=== PATIENT | female | born 1950 | race Caucasian/White ===

== ENCOUNTER 2016-05-14 18:13 | Emergency (ER) | payer OTHER ==
[~2016-05-14] VITALS: Ht 172.7 cm; Wt 66.0 kg
[2016-05-14 18:23] VITALS: TEMP 37; Ht 172.7 cm; Wt 66.0 kg
[2016-05-14] MEDS ORDERED: HYDROCODONE/HOMATROPINE SYRUP 5MG/1.5MG 5ML UDP PO STA (18:52)
--- NOTE | 2016-05-14 19:29 | DIAGNOSTIC IMAGING REPORT ---
CHEST 2 VIEWS ROUTINE CLINICAL HISTORY: Cough. Left-sided chest pain. Evaluate for pneumonia. COMPARISON STUDY: No previous studies for comparison. FINDINGS: Lung volumes are normal. There is no pneumothorax or pleural effusion. Cardiac size is normal. Mediastinal contours are normal. There is no evidence of pulmonary edema. No consolidation is identified. IMPRESSION: No acute cardiopulmonary findings. Electronically signed by: Brett Willard M.D. 05/14/2016 7:27 PM Dictated Date/Time: 05/14/2016 7:27 PM
[2016-05-14] MEDS ORDERED: DOXYCYCLINE HYCLATE 100 MG CAP PO STA (19:48)
[2016-05-14] MEDS ORDERED: HYDR5SYP11 PO (19:50)
[2016-05-14] MEDS ORDERED: DOXY100C2 PO (19:50)
[2016-05-14] MEDS ORDERED: DEXT-163 PO (19:55)
[2016-05-14 20:00] VITALS: BP 141/84; PULSE 68; O2SAT 94
[2016-05-14] MEDS ORDERED: HYCODAN 60ML BOTTLE HOMEPACK PO ONE (20:00)
--- NOTE | 2016-05-15 00:16 | EMERGENCY ROOM VISIT NOTE ---
History Report prepared by Cally: Anastasiia Cisneros Under the Supervision of: Dr. Jackson Jeronimo M.D. First contact with patient: 18:42 Chief Complaint: FLU LIKE SX Stated Complaint: HAS A COLD/SETTLED IN CHEST,FLU? History of Present Illness The patient is a 65 year old female who presents to the Emergency Room with complaints of worsening cold symptoms for the past week. The patient states that she has been experiencing these symptoms for the past 5 weeks, however they did begin to improve before worsening again one week ago. Her symptoms include a cough with green and yellow sputum, subjective low grade fever, and congestion. The patient is also experiencing left sided rib pain when she coughs for the past week. She denies vomiting, shortness of breath, abdominal pain, or recent falls. Source of History: patient Onset: 1 week [employer] Position: other (global) Quality: other (Cold symptoms) Timing: worsening Associated Symptoms: + cough, + fevers, No SOB, No abdominal pain, No vomiting Review of Systems See HPI for pertinent positives & negatives. A total of 10 systems reviewed and were otherwise negative. Past Medical & Surgical Medical Problems: (1) No Known Active Medical Problems Family History Patient reports no known family medical history. Social History Smoking Status: Never Smoker Smokeless Tobacco Use: No Housing Status: lives with family Current/Historical Medications Scheduled Doxycycline Hyclate (Vibramycin), 100 MG PO BID Scheduled PRN Dextromethorphan-Guaifenesin (Delsym Cough + Chest Sid 5-100 mg/5Ml), 5 ML PO DIRECTED PRN for Cough Hydrocodone W/ Homatropine (Hycodan 5/1.5MG 5 Ml), 5 ML PO Q4H PRN for Cough Allergies Coded Allergies: No Known Allergies (Unverified , 05/14/16) Physical Exam Vital Signs Date Time Temp Pulse Resp B/P Pulse Ox O2 Delivery O2 Flow Rate FiO2 05/14/16 20:00 68 16 141/84 94 Room Air 05/14/16 19:13 75 16 135/80 95 Room Air 05/14/16 19:02 71 05/14/16 18:23 37.0 82 20 167/98 97 Room Air Physical Exam Constitutional: Vital signs reviewed. Eyes: Pupils are equal round reactive to light. Conjunctiva are noninjected. ENT: Pharynx is clear without erythema or exudate. Mucous membranes are moist. Neck supple without meningeal signs. Respiratory: Clear to auscultation bilaterally. Breath sounds are equal bilaterally. Cardiovascular: Regular rate and rhythm. No rubs or gallops. GI: Soft, nondistended and nontender. Bowel sounds are present. Musculoskeletal: No peripheral edema. No lower extremity tenderness. Left anterior rib tenderness. Integumentary: No cyanosis. Neurological: The patient is awake and alert. No focal deficits. Psychiatric: Normal affect. Medical Decision & Procedures ER Provider Diagnostic Interpretation: X-ray results as stated below per interpretation by me and the radiologist: CHEST 2 VIEWS ROUTINE CLINICAL HISTORY: Cough. Left-sided chest pain. Evaluate for pneumonia. COMPARISON STUDY: No previous studies for comparison. FINDINGS: Lung volumes are normal. There is no pneumothorax or pleural effusion. Cardiac size is normal. Mediastinal contours are normal. There is no evidence of pulmonary edema. No consolidation is identified. IMPRESSION: No acute cardiopulmonary findings. Electronically signed by: Brett Willard M.D. 05/14/2016 7:27 PM Dictated Date/Time: 05/14/2016 7:27 PM Medications Administered Medications (Trade) Dose Ordered Sig/Elaina Route Start Time Stop Time Status Last Admin Dose Admin Hydrocodone Bit/ Homatropine Methylb (Hycodan Syrup) 5 ml NOW STAT PO 05/14/16 18:52 05/14/16 18:53 DC 05/14/16 19:12 5 ML Hydrocodone Bit/ Homatropine Methylb (Hycodan Elix Homepack 5/1.5MG/ 5ML) 1 homepack UD ONCE PO 05/14/16 20:00 05/14/16 20:01 DC 05/14/16 20:07 1 HOMEPACK Doxycycline Hyclate (Vibramycin Cap) 100 mg NOW STAT PO 05/14/16 19:48 05/14/16 19:50 DC 05/14/16 20:06 100 MG ECG Indication: other (left rib pain) Rate (beats per minute): 60 Rhythm: normal sinus Findings: no acute ischemic change, no ectopy ED Course 1842: The patient was evaluated in room C7. A complete history and physical exam was performed. 1851: Hycodan Syrup 5 ml PO. 1947: I spoke with the patient about her test results. Ordered Vibramycin Cap 100 mg PO. 1950: Upon reevaluation, the patient appeared to have improvement of her symptoms. I discussed prakash's findings with her. She verbalized agreement of the treatment plan. She was discharged home. 2000: Hycodan Elix Homepack 5/1.5 mg/ 5 ml 1 homepack PO. Medical Decision This is a 65-year-old female who presents with cold symptoms and rib pain. Differential diagnosis includes URI, bronchitis, pneumonia, pleurisy, pneumothorax. I did perform a limited focused review of portions of the patient 's old chart on the electronic medical record. The patient has had no prior visits to this hospital. I did evaluate the patient as noted above. She does have reproducible rib tenderness on the left side. She is afebrile. I did treat her with Hycodan. I did order and personally review the patient's chest x-ray as described above. There is no evidence of pneumonia or pneumothorax. I did reassess the patient. She is feeling better. Given that she has had symptoms for about 5 weeks I did feel antibiotics were indicated. I did treat patient with doxycycline. She was also given a prescription for Hycodan as well as doxycycline. She was given precautions regarding this medication. Impression Primary Impression: Acute bronchitis Additional Impression: Rib pain on left side Scribe Attestation The scribe's documentation has been prepared under my direct and personally reviewed by me in its entirety. I confirm that the note above accurately reflects all work, treatment, procedures, and medical decision making performed by me. Departure Information Dispostion Home / Self-Care Prescriptions Hydrocodone W/ Homatropine (HYCODAN 5/1.5MG 5 ML) 1 Syp Syp 5 ML PO Q4H Y for Cough, #200 ML Prov: Jackson Jeronimo M.D. 05/14/16 Doxycycline Hyclate (VIBRAMYCIN) 100 Mg Cap 100 MG PO BID for 10 Days, #19 CAP Prov: Jackson Jeronimo M.D. 05/14/16 Referrals No Doctor, Assigned (PCP) Forms HOME CARE DOCUMENTATION FORM, IMPORTANT VISIT INFORMATION Patient Instructions ED Bronchitis Abx Tx, My [facility] Additional Instructions You have been examined and treated today on an emergency basis only. This is not a substitute for, or an effort to provide, complete comprehensive medical care. It is impossible to recognize and treat all injuries or illnesses in a single emergency department visit. It is therefore important that you follow up closely with your physician. Call as soon as possible for an appointment. Return for worsening symptoms or if you develop shortness of breath, vomiting, or any other concerning symptoms. Problem Qualifiers
== END 2016-05-14 20:12 | disposition home or self-care (01) ==
LOC: C.EDB 18:14 → C.EDC 20:12
DX: J20.9 Acute bronchitis, unspecified (principal)